=== PATIENT | female | born 1965 ===

== ENCOUNTER 2016-05-17 13:06 | Emergency (ER) | payer MEDICAID ==
[2016-05-17 14:01] VITALS: RESP 18; TEMP 98.4
--- NOTE | 2016-05-17 15:33 | C.PDOC ---
History Of Present Illness 51 year old female with a history of sciatica, presents to the ED with complaints of sciatica pain radiating down her left leg for 3-4 days. Patient states she took Flexeril for the pain with no relief and denies trauma, incontinence, fever, or any other complaints at this time. Time Seen by Provider: 05/17/16 14:27 Chief Complaint (Nursing): Lower Extremity Problem/Injury History Per: Patient History/Exam Limitations: no limitations Onset/Duration Of Symptoms: Days Current Symptoms Are (Timing): Still Present Severity: Mild Past Medical History Reviewed: Historical Data, Nursing Documentation, Vital Signs Vital Signs: Last Vital Signs Temp 98.4 F 05/17/16 13:56 Pulse 89 05/17/16 15:54 Resp 18 05/17/16 15:54 BP 102/62 05/17/16 15:54 Pulse Ox 97 05/17/16 18:14 - Medical History PMH: Arthritis Family History: States: Unknown Family Hx - Social History Hx Alcohol Use: No Hx Substance Use: No - Immunization History Hx Tetanus Toxoid Vaccination: Yes Hx Influenza Vaccination: No Hx Pneumococcal Vaccination: No Review Of Systems Except As Marked, All Systems Reviewed And Found Negative. Constitutional: Negative for: Fever, Chills Musculoskeletal: Positive for: Back Pain (+Left sided back pain radiating down left leg) Skin: Negative for: Rash Neurological: Negative for: Weakness, Numbness Physical Exam - Physical Exam Appears: Non-toxic, No Acute Distress Skin: Normal Color, Warm, Dry Head: Atraumatic, Normacephalic Eye(s): bilateral: Normal Inspection Oral Mucosa: Moist Neck: Supple Chest: Symmetrical Respiratory: No Accessory Muscle Use Back: No Straight Leg Raising (Unable to perform SLR due to pain), Other (+ Diffuse LS tenderness ) Extremity: No Deformity Neurological/Psych: Oriented x3, Normal Speech, Normal Cognition ED Course And Treatment O2 Sat by Pulse Oximetry: 97 (Room air) Pulse Ox Interpretation: Normal Progress Note: Patient treated with Gabapentin, Toradol, and Valium. Rx given and patient advised out patient follow up. Disposition Counseled Patient/Family Regarding: Diagnosis, Need For Followup - Disposition Disposition: HOME/ ROUTINE Disposition Time: 15:28 Condition: GOOD Additional Instructions: Dont take motrin or aleve with the new rx Prescriptions: Meloxicam [Mobic] 1 tab PO DAILY #20 tab Gabapentin [Neurontin] 1 cap PO TID #60 cap diaZEpam [Valium] 1 tab PO TID PRN #15 tab PRN Reason: . back spasm Instructions: Sciatica (ED) - Clinical Impression Clinical Impression: Sciatica - Scribe Statement The provider has reviewed the documentation as recorded by the Scribe Celestino Corona. Provider Attestation: All medical record entries made by the Scribe were at my direction and personally dictated by me. I have reviewed the chart and agree that the record accurately reflects my personal performance of the history, physical exam, medical decision making, and the department course for this patient. I have also personally directed, reviewed, and agree with the discharge instructions and disposition.
[2016-05-17 15:55] VITALS: BP 102/62; PULSE 89
[2016-05-17 18:10] VITALS: O2SAT 97
== END 2016-05-17 15:58 | disposition home or self-care (01) ==
LOC: C.ER 13:06
DX: M54.42 Lumbago with sciatica, left side (principal)
CPT/HCPCS: 96372; 99284; J1885